=== PATIENT | female | born 1970 | race Caucasian/White ===

== ENCOUNTER 2023-10-06 15:16 | Emergency (ER) | payer OTHER, SELFPAY ==
[2023-10-06] VITALS (12 sets, daily range): BP systolic 177–229; BP diastolic 77–102; PULSE 71–88; RESP 18–23; TEMP 36.3; O2SAT 92–96; BMI 40.3
--- NOTE | 2023-10-06 15:46 | DI.RAD.S_ITS ---
PROCEDURE: XR CHEST 1V INDICATIONS: Shortness of breath TECHNIQUE: One view of the chest was acquired. COMPARISON: None. FINDINGS: Surgical changes and devices: None. Lungs and pleura: Lungs are clear. No pleural effusions or pneumothorax. Mediastinum: Mediastinal contours appear normal. Heart size is normal. Bones and chest wall: No suspicious bony lesions. Overlying soft tissues appear unremarkable. IMPRESSION: No acute cardiopulmonary abnormality is seen. Dictated by: Bernnan Douglas M.D. on 10/06/2023 at 16:54 Approved by: Brennan Douglas M.D. on 10/06/2023 at 16:58
[2023-10-06] MEDS: ALBUTEROL/IPRATROPIUM 3 ML AMPUL INH (16:10)
--- NOTE | 2023-10-06 16:40 | PC.NURSE ---
Pt denies chest pain or any new pain. Reports increased WOB with SOB from exertion, even walking causes increased SOB. Pt was sick last week and since has run out of her albuterol nebulizers. She has not gone back to her PCP to have them filled.
[2023-10-06 16:43] LABS: Add Manual Diff / Slide Review NO; Basophils Absolute Auto 0 /uL (0-100); Basophils Percent Auto 0.9 % (0-2); Eosinophils Absolute Auto 100 /uL (0-450); Eosinophils Percent Auto 1.6 % (2-4); Hematocrit 41.6 % (36-46); Hemoglobin 13.9 g/dL (12.0-16.0); Lymphocytes Absolute Auto 1500 /uL (1100-4500); Lymphocytes Percent Auto 29.3 % (25-40); Mean Corpuscular HGB Conc 33.5 % (30-36); Mean Corpuscular Hemoglobin 27.4 PG (26-34); Mean Corpuscular Volume 81.9 fL (80-100); Monocytes Absolute Auto 600 /uL (0-900); Monocytes Percent Auto 11.3 % (3-14); Neutrophils Absolute Auto 3000 /uL (1500-7000); Neutrophils Percent Auto 56.9 % (50-75); Platelet Count 269 X10^3/uL (150-400); Red Blood Cell Count 5.08 X10^6/uL (4.0-5.2); Red Cell Distribution Width 14.2 % (11.6-14.8); White Blood Cell Count 5.2 X10^3/uL (4.5-11.0)
[2023-10-06 16:52] LABS: INR 1.1 (0.9-1.3); Prothrombin Time 12.2 SECONDS (9.4-12.5)
[2023-10-06 16:54] LABS: Lactate (Lactic Acid) 1.2 mmol/L (0.7-2.1)
[2023-10-06 16:55] LABS: Alanine Aminotransferase 24 IU/L (<35); Albumin 4.8 g/dL (3.5-5.0); Albumin Globulin Ratio 1.2 (1.0-2.8); Alkaline Phosphatase 136 U/L (38-126); Aspartate Aminotransferase 40 IU/L (14-36); BUN Creatinine Ratio 20.6 (6-22); Bilirubin Total 0.8 mg/dL (0.2-1.3); Blood Urea Nitrogen 13 mg/dL (7-17); Calcium 9.1 mg/dL (8.4-10.2); Carbon Dioxide 29 mmol/L (22-32); Chloride 101 mmol/L (98-107); Estimated Glomerular Filt Rate > 60 mL/min (>60); Globulin 4.1 g/dL (1.7-4.1); Glucose 98 mg/dL (70-100); HEMOLYSIS < 15 (0-50); Potassium 3.9 mmol/L (3.4-5.1); Sodium 137 mmol/L (137-145); Total Protein 8.9 g/dL (6.3-8.2)
[2023-10-06 17:07] LABS: NT-proBNP (BNP-Adult 18+) 105 pg/mL (<125); Troponin I < 0.012 ng/mL (0.01-0.034)
[2023-10-06] MEDS: methylPREDNISolone 125 MG/2 ML VIAL IV (17:30)
--- NOTE | 2023-10-06 17:47 | ED_ITS ---
HPI - SOB/Dyspnea General Chief Complaint: Shortness of Breath/Dyspnea Stated Complaint: SoB Time Seen by Provider: 10/06/23 17:15 Source: patient Mode of arrival: Ambulatory Limitations: no limitations History of Present Illness HPI Narrative: This is a 53-year-old female with history of hypertension and asthma who has been out of her medication 4 5 months. Patient states she ran out of her inhalers and would typically use them every so often sometimes 3 times daily but not always. But patient states she recently got an upper respiratory infection with nasal congestion and cough about 5 days ago and has had increasing weakness tightness in her chest. No fevers she has had occasional chills. She denies chest pain or pressure, no syncope. No diaphoresis. Patient states she does feel short of breath feels tight and wheezy in her chest. Patient states no nausea or vomiting, no urinary symptoms. No swelling in extremities. Patient is supposed to be on lisinopril 20 mg daily, she use albuterol PRN. Never had a steroid inhaler in the past but did ask about that. She denies any prior surgeries. States she gets facial swelling with aspirin and has allergy to shellfish. No tobacco, does have alcoholic drink nightly, no recreational drugs. She sees primary care through this [facility] but has been unable to get into see them because she works at the [employer] 6 days a week as part of their mandate and has not been able to get to the office. Related Data Previous Rx's Medication Instructions Recorded albuterol sulfate 2.5 mg/3 mL 2.5 mg (3 mL) inhalation Q4-6H PRN 10/06/23 (0.083 %) solution for nebulization shortness of breath or wheezing #90 mL beclomethasone dipropionate 80 1 inh inhalation BID #10.6 grams 10/06/23 mcg/actuation HFA breath activated aerosol (Qvar RediHaler) lisinopril 20 mg tablet 20 mg PO DAILY #30 tabs 10/06/23 prednisone 10 mg tablets in a dose See Rx Instructions PO .COMPLEX 10/06/23 pack #21 ea Allergies Allergy/AdvReac Type Severity Reaction Status Date / Time aspirin Allergy Verified 10/06/23 15:38 shellfish derived Allergy Verified 10/06/23 15:38 Review of Systems Review of Systems ROS Unobtainable: All systems reviewed & are unremarkable except as noted in HPI and below Patient History Social History Smoking Status: Never smoker Smoking Status: Never smoker alcohol intake frequency: 0-2 drinks per day Substance Use Type: does not use Exam Narrative Exam Narrative: GENERAL: Alert and oriented x three, female in mild distress. HEENT: Head normocephalic, atraumatic, EOMI, pupils reactive, mild nasal congestion, face symmetric, moist mucous membranes NECK: Supple, full range of motion CARDIOVASCULAR: Regular rate and rhythm without murmurs, rubs or gallops. No JVD. No edema bilateral lower extremities. RESPIRATORY: Breath sounds equal bilaterally, bilateral wheezes anterior as well as posterior chest on expiratory, no rhonchi, no rales. No tachypnea or accessory muscle use. ABDOMEN: Soft, nontender. Normoactive bowel sounds all 4 quadrants. No guarding or rebound, rigidity, no mass : No CVA tenderness EXTREMITIES: Normal range of motion, no clubbing or edema. Neurovascularly intact NEUROLOGICAL: Cranial nerves II through XII grossly intact. Moving all extremities SKIN: Warm, dry, no petechiae, no rashes or lesions. Initial Vital Signs Initial Vital Signs: Vital Signs Temperature 97.3 F L 10/06/23 15:38 Pulse Rate 85 10/06/23 15:38 Respiratory Rate 22 10/06/23 15:38 Blood Pressure 229/102 H 10/06/23 15:38 Pulse Oximetry 96 10/06/23 15:38 Oxygen Delivery Method Room Air 10/06/23 15:38 Course Orders Ordered: Discontinued Medications Albuterol (Albuterol 2.5 Mg/3 Ml Neb (Adult)) 10 mg INH NOW ONE Stop: 10/06/23 17:47 Last Admin: 10/06/23 17:58 Dose: 10 mg Documented By: MADHU Albuterol (Albuterol Hfa Prepack) 1 box MISC DIRECTED ONE Stop: 10/06/23 17:47 Last Admin: 10/06/23 18:23 Dose: 1 box Documented By: HILARIA Albuterol/Ipratropium (Albuterol/Ipratropium 3 Ml Ampul) 3 ml INH NOW ONE Stop: 10/06/23 16:09 Last Admin: 10/06/23 16:10 Dose: 3 ml Documented By: JAYASHREE Lisinopril (Lisinopril 20 Mg Tablet) 20 mg PO NOW ONE Stop: 10/06/23 17:47 Last Admin: 10/06/23 18:23 Dose: 20 mg Documented By: HILARIA Methylprednisolone (Methylprednisolone 125 Mg/2 Ml Vial) 125 mg IV NOW ONE Stop: 10/06/23 17:16 Last Admin: 10/06/23 17:30 Dose: 125 mg Documented By: HILARIA Vital Signs Vital signs: Vital Signs - 8 hr 10/06/23 15:38 10/06/23 16:10 10/06/23 16:34 Temperature 97.3 F L Pulse Rate 85 71 80 Respiratory Rate 22 18 Blood Pressure 229/102 H Pulse Oximetry 96 93 92 Oxygen Delivery Method Room Air Room Air Oxygen Flow Rate 0 Fraction of Inspired Oxygen 21 10/06/23 16:35 10/06/23 16:35 10/06/23 17:00 Temperature Pulse Rate 78 Respiratory Rate Blood Pressure 201/100 H 187/92 H Pulse Oximetry 92 Oxygen Delivery Method Room Air Oxygen Flow Rate Fraction of Inspired Oxygen 10/06/23 17:00 10/06/23 17:30 10/06/23 17:30 Temperature Pulse Rate 84 80 Respiratory Rate 22 Blood Pressure 211/95 H Pulse Oximetry 92 93 Oxygen Delivery Method Room Air Oxygen Flow Rate Fraction of Inspired Oxygen 10/06/23 18:00 10/06/23 18:23 10/06/23 18:30 Temperature Pulse Rate 75 86 80 Respiratory Rate 19 21 Blood Pressure 211/95 H Pulse Oximetry 93 96 Oxygen Delivery Method Room Air Room Air Oxygen Flow Rate Fraction of Inspired Oxygen 10/06/23 18:31 10/06/23 18:31 Temperature Pulse Rate 82 Respiratory Rate Blood Pressure 177/77 H Pulse Oximetry 96 Oxygen Delivery Method Room Air Oxygen Flow Rate Fraction of Inspired Oxygen MDM - SOB/Dyspnea Lab Data 10/06/23 16:35 10/06/23 16:35 Labs: Lab Results 10/06/23 Range/Units 16:35 WBC 5.2 (4.5-11.0) X10^3/uL RBC 5.08 (4.0-5.2) X10^6/uL Hgb 13.9 (12.0-16.0) g/dL Hct 41.6 (36-46) % MCV 81.9 (80-100) fL MCH 27.4 (26-34) PG MCHC 33.5 (30-36) % RDW 14.2 (11.6-14.8) % Plt Count 269 (150-400) X10^3/uL Neut % (Auto) 56.9 (50-75) % Lymph % (Auto) 29.3 (25-40) % [place] % (Auto) 11.3 (3-14) % Eos % (Auto) 1.6 L (2-4) % Baso % (Auto) 0.9 (0-2) % Neut # (Auto) 3000 (1990-5101) /uL Lymph # (Auto) 1500 (0455-1109) /uL [place] # (Auto) 600 (0-900) /uL Eos # (Auto) 100 (0-450) /uL Baso # (Auto) 0 (0-100) /uL PT 12.2 (9.4-12.5) SECONDS INR 1.1 (0.9-1.3) Sodium 137 (137-145) mmol/L Potassium 3.9 (3.4-5.1) mmol/L Chloride 101 (98-107) mmol/L Carbon Dioxide 29 (22-32) mmol/L BUN 13 (7-17) mg/dL Creatinine 0.63 (0.52-1.04) mg/dL Estimated GFR > 60 (>60) mL/min BUN/Creatinine Ratio 20.6 (6-22) Glucose 98 (70-100) mg/dL Lactate 1.2 (0.7-2.1) mmol/L Calcium 9.1 (8.4-10.2) mg/dL Total Bilirubin 0.8 (0.2-1.3) mg/dL AST 40 H (14-36) IU/L ALT 24 (<35) IU/L Alkaline Phosphatase 136 H (38-126) U/L Troponin I < 0.012 (0.01-0.034) ng/mL NT-Pro-B Natriuret Pep 105 (<125) pg/mL Total Protein 8.9 H (6.3-8.2) g/dL Albumin 4.8 (3.5-5.0) g/dL Globulin 4.1 (1.7-4.1) g/dL Albumin/Globulin Ratio 1.2 (1.0-2.8) Imaging Data Chest x-ray: Radiologist's Impression: Close Chest X-Ray (Signed) Brennan Douglas - 10/06/23 Launch?[address] [address] XRay Report Signed Patient: Savanna Ta MR#: [id number] : 1970 Acct:[id number] Age/Sex: 53 / F Date of Service: 10/06/23 Loc: ED Accession Number: [id number] Procedure: XR chest 1V Ordering Provider: Jennifer Arciniega D.O. PROCEDURE: XR CHEST 1V INDICATIONS: Shortness of breath TECHNIQUE: One view of the chest was acquired. COMPARISON: None. FINDINGS: Surgical changes and devices: None. Lungs and pleura: Lungs are clear. No pleural effusions or pneumothorax. Mediastinum: Mediastinal contours appear normal. Heart size is normal. Bones and chest wall: No suspicious bony lesions. Overlying soft tissues appear unremarkable. IMPRESSION: No acute cardiopulmonary abnormality is seen. Dictated by: Brennan Douglas M.D. on 10/06/2023 at 16:54 Approved by: Brennan Douglas M.D. on 10/06/2023 at 16:58 ECG Data Attestation: I personally reviewed and interpreted this ECG as follows: Interpretation: Rate 80 WV 158 QRS is [address]TC [address] No acute [address] elevation depression. No priors for comparison. MDM Narrative Medical decision making narrative: This is a 53-year-old female with history of hypertension and asthma who has been out of her medications for several months recent URI and increasing wheezing and tightness and a albuterol. Patient on examination does have wheeze had 1 neb with minimal improvement. Patient's workup includes CBC shows a white count of 5.2 hemoglobin of 13 platelets of 269, INR 1.1, normal renal function with a creatinine of 0.63 BUN of 13 glucose of 98, sodium 137 potassium 3 9, chloride 101 and a CO2 of 29, lactate 1.2 AST is 40 alk-phos 136, otherwise negative LFTs. Troponins negative at less than 0.12, BNP is 205. Chest x-ray shows no acute change. EKG shows sinus rhythm without any acute changes, no priors for comparison. Patient had continued wheeze but no tachypnea or significant accessory muscle use. Was given 10 mg albuterol re-evaluated. Also received Solu-Medrol 125 mg IV. Patient is also quite hypertensive, has been out of her medications for several months was restarted on oral lisinopril and we will refill this. Patient does feel somewhat improved, plan for discharge with albuterol with a spacer, refill for her lisinopril, oral prednisone and we will give a script for steroid inhaler. Patient does have a primary care but has not been following up because it interferes with work. Discussed need for follow-up and group home going to outcomes with persistent hypertension. Patient feels improved after 10 mg. Wheeze has significantly improved as well. Reviewed need for follow-up. Discussed return precautions all questions answered. Patient feels comfortable returning home. Discharge Plan Departure Patient Disposition: Home Clinical Impression: Asthma with exacerbation, URI (upper respiratory infection), Hypertension Instructions: Asthma -- Adult Activity Restrictions/Additional Instructions: It is important that you follow up either with primary care to have your medications refilled regularly. Please restart your lisinopril. Continue with oral steroids until completed. Use albuterol 2-4 puffs with spacer every 4 hours as needed for wheezing or shortness of breath. There has also a prescription for steroid inhaler to use whether you are having symptoms or asymptomatic, use this twice daily regardless of symptoms. Prescription sent to [facility] in [place] Please return for fevers increasing shortness of breath, lightheadedness or passing out, new chest pain or tightness, severe headaches, passing out or other new or concerning changes. Prescriptions: New lisinopril 20 mg tablet 20 mg PO DAILY Qty: 30 0RF albuterol sulfate 2.5 mg /3 mL (0.083 %) solution for nebulization 2.5 mg inhalation Q4-6H PRN (Reason: shortness of breath or wheezing) Qty: 90 0RF Qvar RediHaler 80 mcg/actuation HFA aerosol breath activated 1 inh inhalation BID Qty: 10.6 0RF prednisone 10 mg tablets,dose pack See Rx Instructions .ROUTE .COMPLEX Qty: 21 0RF Rx Instructions: Take 6 tablets p.o. x1 day, then 5 tablets p.o. x1 day, then 4 tablets p.o. x1 day, then 3 tablets p.o. x1 day, then 2 tablets p.o. x1 day, then 1 tablet p.o. x1 day Stand Alone Forms: Patient Portal/API
[2023-10-06] MEDS: ALBUTEROL 2.5 MG/3 ML NEB (ADULT) 10 MG INH (17:58)
[2023-10-06] MEDS: ALBUTEROL HFA PREPACK 1 BOX MISC (18:23)
[2023-10-06] MEDS: lisinopriL 20 MG TABLET PO (18:23)
== END 2023-10-06 19:12 | disposition home or self-care (01) ==
PROVIDERS: Emergency Provider Emergency Medicine
DX: I10 Essential (primary) hypertension (principal); J45.901 Unspecified asthma with (acute) exacerbation; J06.9 Acute upper respiratory infection, unspecified
CPT/HCPCS: 36415; 71045; 80053; 83605; 83880; 84484; 85025; 85610; 93005; 94640; 96374; 99284; J2919; J7613

== ENCOUNTER → 2023-10-29 13:19 | Outpatient (CLI) | payer OTHER, SELFPAY | LOC: RESP 13:20 | PROVIDERS: PCP Family Medicine; Referring Provider Family Medicine; Visit Provider Family Medicine | DX: J45.20 Mild intermittent asthma, uncomplicated (principal) | CPT/HCPCS: 94060; 94726; 94729 ==

== ENCOUNTER → 2023-12-03 06:50 | Outpatient (CLI) | payer OTHER, SELFPAY ==
--- NOTE | 2023-12-03 06:51 | DI.ECHO.S_ITS ---
[facility] : : [address] : : [place] : : [id number] : : Phone: [phone] Echocardiogram Report + + :Name: LUCIA MATOS Study Date: 12/03/2023 Height: 66 in : :[facility] ReadingLocation: Weight: 253 lb : : Gender: Female BSA: 2.2 m2 : :: 1970 Age: 53 yrs BP: 137/93 mmHg: :Reason For Study: DYSPNEA ON EXERTION : :Ordering Physician: OMAR : :WILFRIDO Performed By: Jaclyn Cortez : :Referring: WILFRIDO NELSON : + + Interpretation Summary Left ventricular wall thickness is mildly increased. The ejection fraction is estimated to be 60-65%. Diastolic parameters suggest probable normal left ventricular diastolic function and normal filling pressures. The right ventricle is normal in size and function. No significant valvular abnormalities. Pulmonary artery pressures cannot be estimated because of the lack of a measurable TR jet velocity but the IVC suggests a CVP of around 3 mmHg. Procedure: A two-dimensional transthoracic echocardiogram with color flow and Doppler was performed. The study quality was technically adequate. There is no prior echocardiogram noted for this patient. The patient was in sinus bradycardia with heart rates between 58-65 bpm during the exam. Left Ventricle: The left ventricle is normal in size. Left ventricular wall thickness is mildly increased. The ejection fraction is estimated to be 60- 65%. Diastolic parameters suggest probable normal left ventricular diastolic function and normal filling pressures. Right Ventricle: The right ventricle is normal in size and function. Atria: The left atrial size is normal. Right atrial size is normal. There is no Doppler evidence for an interatrial shunt. Mitral Valve: The mitral valve is normal in structure and function. There is no mitral regurgitation noted. Aortic Valve: The aortic valve is trileaflet. The aortic valve opens well. There is no aortic valve stenosis. No aortic regurgitation is present. Tricuspid Valve: The tricuspid valve is normal in structure and function. There is trace tricuspid regurgitation. Pulmonary artery pressures cannot be estimated because of the lack of a measurable TR jet velocity but the IVC suggests a CVP of around 3 mmHg. Pulmonic Valve: The pulmonic valve is not well seen, but is grossly normal. There is no pulmonic valvular regurgitation. Great Vessels: The aortic root is normal size. The dimensions of the ascending aorta are normal. The IVC is of normal diameter and collapses greater than 50% with a sniff. This suggests a low right atrial pressure of 3 mm Hg. Pericardium/ Pleura There is no pericardial effusion. There is no pleural effusion. MMode/2D Measurements & Calculations LVIDd: 5.3 cm LVOT diam: 2.0 cm LVIDs: 3.2 cm Ao root diam: 3.0 cm FS: 39.9 % asc Aorta Diam: 3.3 cm IVSd: 1.1 cm Ao Arch Diam (Prox Trans): 2.9 cm LVPWd: 1.1 cm LV diggs. diameter/BSA (cm/m^2): 2.4 LV sys. diameter/BSA (cm/m^2): 1.4 LA A2 area: 19.4 cm2 RA long axis: 5.2 cm LA A4 area: 17.3 cm2 RA area: 13.9 cm2 LA length (vol): 5.0 cm RA vol: 31.8 ml LA vol: 56.8 ml RA : 14.4 ml/m2 LA vol index: 25.7 ml/m2 IVC diam: 1.3 cm RVD1 (basal): 3.8 cm RVD2 (mid): 2.6 cm TAPSE: 2.3 cm Doppler Measurements & Calculations Ao V2 max: 178.5 cm/sec LVOT Max Parker: 114.8 cm/sec Ao V2 mean: 110.1 cm/sec LV V1 max P.3 mmHg Ao max P.7 mmHg LV V1 VTI: 23.4 cm Ao mean P.8 mmHg NEHEMIAS(I,D): 1.9 cm2 Ao V2 VTI: 37.3 cm NEHEMIAS(V,D): 1.9 cm2 sev ratio: 0.63 NEHEMIAS indexed to BSA (cm^2/m^2): 0.85 MV E max parker: 113.9 cm/sec TR max parker: 253.4 cm/sec MV A max parker: 104.4 cm/sec TR max P.7 mmHg MV E/A: 1.1 PA V2 max: 111.8 cm/sec Med Peak E' Parker: 8.0 cm/sec PA V2 mean: 87.2 cm/sec E/E' med: 14.2 PA mean P.2 mmHg Lat Peak E' Parker: 11.6 cm/sec PA pr(Accel): 31.0 mmHg E/E' lat: 9.8 E/e' average: 12.0 MV dec time: 0.26 sec [facility] 70.0 ml Reading Physician:01:41 PM
== END ==
LOC: ECHO 06:51
PROVIDERS: PCP Family Medicine; Referring Provider Family Medicine; Visit Provider Family Medicine
DX: R06.09 Other forms of dyspnea (principal)
CPT/HCPCS: 93306

== ENCOUNTER 2024-08-16 11:31 | Emergency (ER) | payer OTHER, SELFPAY ==
[2024-08-16] VITALS (18 sets, daily range): BP systolic 155–196; BP diastolic 67–98; PULSE 82–104; RESP 19–32; TEMP 37.4; O2SAT 93–99; BMI 43.5
--- NOTE | 2024-08-16 11:46 | DI.RAD.S_ITS ---
PROCEDURE: XR CHEST 1V INDICATIONS: Shortness of breath TECHNIQUE: One view of the chest was acquired. COMPARISON: [facility], CR, XR CHEST 1V, 10/06/2023, 16:18. FINDINGS: Surgical changes and devices: None. Lungs and pleura: Lungs are clear. No pleural effusions or pneumothorax. Mediastinum: Mediastinal contours appear normal. Heart size is normal. Bones and chest wall: No suspicious bony lesions. Overlying soft tissues appear unremarkable. IMPRESSION: No acute cardiopulmonary abnormality is seen. Dictated by: Brennan Douglas M.D. on 08/16/2024 at 13:22 Approved by: Brennan Douglas M.D. on 08/16/2024 at 13:22
--- NOTE | 2024-08-16 11:53 | EKG_ITS ---
[address] [address] Test Date: 2024-08-16 Pat Name: Savanna Ta Department: [facility] Room: Gender: Female Receiving Clerk: GLORIA : 1970 Requested By: Order Number: [id number] Reading MD: Mendel Alegre Measurements Intervals [place] Rate: 92 P: 60 MT: 150 QRS: 42 QRSD: 78 T: 59 QT: 356 QTc: 440 Interpretive Statements Normal sinus rhythm Low voltage QRS Electronically Signed On 08-16-2024 18:21:19 PST by Mendel Alegre
[2024-08-16] MEDS: ALBUTEROL 2.5 MG/3 ML NEB (ADULT) INH ×2 (12:08→14:58)
[2024-08-16 12:09] LABS: Add Manual Diff / Slide Review NO; Basophils Absolute Auto 100 /uL (0-100); Basophils Percent Auto 0.7 % (0-2); Eosinophils Absolute Auto 200 /uL (0-450); Eosinophils Percent Auto 2.1 % (2-4); Hematocrit 38.4 % (36-46); Hemoglobin 12.9 g/dL (12.0-16.0); Lymphocytes Absolute Auto 700 /uL (1100-4500); Lymphocytes Percent Auto 9.7 % (25-40); Mean Corpuscular HGB Conc 33.5 % (30-36); Mean Corpuscular Hemoglobin 28.4 PG (26-34); Mean Corpuscular Volume 84.7 fL (80-100); Monocytes Absolute Auto 500 /uL (0-900); Monocytes Percent Auto 5.9 % (3-14); Neutrophils Absolute Auto 6200 /uL (1500-7000); Neutrophils Percent Auto 81.6 % (50-75); Platelet Count 294 X10^3/uL (150-400); Red Blood Cell Count 4.54 X10^6/uL (4.0-5.2); Red Cell Distribution Width 13.7 % (11.6-14.8); White Blood Cell Count 7.6 X10^3/uL (4.5-11.0)
[2024-08-16 12:18] LABS: Prothrombin Time 11.4 SECONDS (9.4-12.5)
[2024-08-16 12:22] LABS: Alanine Aminotransferase 31 IU/L (<35); Albumin 4.6 g/dL (3.5-5.0); Albumin Globulin Ratio 1.4 (1.0-2.8); Alkaline Phosphatase 117 U/L (38-126); Aspartate Aminotransferase 43 IU/L (14-36); BUN Creatinine Ratio 16.9 (6-22); Bilirubin Total 0.4 mg/dL (0.2-1.3); Blood Urea Nitrogen 14 mg/dL (7-17); Calcium 8.8 mg/dL (8.4-10.2); Carbon Dioxide 25 mmol/L (22-32); Chloride 101 mmol/L (98-107); Estimated Glomerular Filt Rate > 60 mL/min (>60); Globulin 3.4 g/dL (1.7-4.1); Glucose 111 mg/dL (70-100); HEMOLYSIS < 15 (0-50); Lactate (Lactic Acid) 1.6 mmol/L (0.7-2.1); Potassium 4.9 mmol/L (3.4-5.1); Sodium 135 mmol/L (137-145)
[2024-08-16 12:34] LABS: NT-proBNP (BNP-Adult 18+) < 20 pg/mL (<125); Troponin I < 0.012 ng/mL (0.01-0.034)
--- NOTE | 2024-08-16 14:42 | ED_ITS ---
HPI - SOB/Dyspnea General Chief Complaint: Shortness of Breath/Dyspnea Stated Complaint: Short of breath, chest is twinging Time Seen by Provider: 08/16/24 14:41 Source: patient Mode of arrival: Ambulatory Limitations: no limitations History of Present Illness HPI Narrative: Patient is a 54-year-old female history history of obstructive sleep apnea no formal diagnosis of asthma she does have no significant improvement after bronchodilators but does have albuterol inhalers at home presents today with increasing shortness of breath. She says that she has significant shortness of breath with exertion no significant chest pain or lower extremity edema. She had an echo done last year which did not show any evidence of pulmonary hypertension and normal atria. She says at 1 point she was placed on oral steroids which does seem to help she is currently taking Alvesco which also seems to help. She denies any sort of orthopnea. She was some obvious conversational dyspnea Related Data Home Medications Medication Instructions Recorded Confirmed ciclesonide 80 mcg/actuation 2 puff inhalation DAILY 01/07/24 01/07/24 aerosol inhaler (Alvesco) Previous Rx's Medication Instructions Recorded albuterol sulfate 2.5 mg/3 mL 2.5 mg (3 mL) inhalation Q4-6H PRN 10/06/23 (0.083 %) solution for nebulization shortness of breath or wheezing #90 mL lisinopril 20 mg tablet 20 mg PO DAILY #30 tabs 10/06/23 albuterol sulfate 2.5 mg/0.5 mL 5 mg inhalation QID PRN shortness 08/16/24 solution for nebulization of breath or wheezing #30 ea prednisone 10 mg tablet 10 mg PO DAILY #30 tabs 08/16/24 Allergies Allergy/AdvReac Type Severity Reaction Status Date / Time aspirin Allergy Verified 01/07/24 10:43 shellfish derived Allergy Verified 01/07/24 10:43 Patient History Social History Smoking Status: Never smoker Smoking Status: Never smoker alcohol intake frequency: 0-2 drinks per day Exam Initial Vital Signs Initial Vital Signs: Vital Signs Temperature 99.4 F 08/16/24 11:40 Pulse Rate 93 H 08/16/24 11:40 Respiratory Rate 22 08/16/24 11:40 Blood Pressure 196/97 H 08/16/24 11:40 Pulse Oximetry 97 08/16/24 11:40 Oxygen Delivery Method Room Air 08/16/24 11:40 GENERAL: Alert pleasant 54-year-old female seems in no respiratory distress and in no acute distress. HEENT: Head atraumatic,EOMI, pupils reactive, face symmetric, moist mucous membranes CARDIOVASCULAR: Regular rate and rhythm without murmurs, rubs or gallops. RESPIRATORY: Decreased breath sounds bilaterally slight wheezing ABDOMEN: Soft, nontender. Normoactive bowel sounds all 4 quadrants. No guarding or rebound. EXTREMITIES: Normal range of motion, no clubbing or edema. Neurovascularly intact NEUROLOGICAL: Alert and oriented x4.Normal gait and speech. SKIN: Warm, dry, no laceration, no petechiae, no rashes or lesions. Scores HEART Score Heart Score history: Slightly Suspicious Heart Score EKG: Normal Heart Score Age: 45-64 years old Heart Score risk factors: No known risk factors Heart Score troponin: < or = to normal limit Heart Score Total: 1 Course Orders Ordered: ED Orders 08/16/24 11:46 XR chest 1V Stat EKG-12 Lead Stat Measure peak expiratory flow ONCE RT Consult Eval and Treat NOW 08/16/24 11:58 Complete Blood Count AUTO DIFF Stat Comprehensive Metabolic Panel Stat Lactate (Lactic Acid) Stat NT-proBNP (BNP-Adult 18+) Stat Prothrombin Time INR Stat Troponin I Stat 08/16/24 15:12 D Dimer Stat Trop I [Troponin I] Stat 08/16/24 16:04 CT angio chest PE protocol Stat Discontinued Medications Albuterol (Albuterol 2.5 Mg/3 Ml Neb (Adult)) 2.5 mg INH NOW ONE Stop: 08/16/24 12:07 Last Admin: 08/16/24 12:08 Dose: 2.5 mg Documented By: JAYASHREE Albuterol (Albuterol 2.5 Mg/3 Ml Neb (Adult)) 2.5 mg INH NOW ONE Stop: 08/16/24 14:53 Last Admin: 08/16/24 14:58 Dose: 2.5 mg Documented By: GERALDINE Albuterol/Ipratropium (Albuterol/Ipratropium 3 Ml Ampul) 3 ml INH NOW ONE Stop: 08/16/24 14:50 Last Admin: 08/16/24 14:58 Dose: 3 ml Documented By: GERALDINE Methylprednisolone (Methylprednisolone 125 Mg/2 Ml Vial) 125 mg IV NOW ONE Stop: 08/16/24 14:50 Last Admin: 08/16/24 15:35 Dose: 125 mg Documented By: JAJA Vital Signs Vital signs: Vital Signs - 8 hr 08/16/24 11:40 08/16/24 11:55 08/16/24 11:56 Temperature 99.4 F Pulse Rate 93 H 88 Respiratory Rate 22 Blood Pressure 196/97 H 180/89 H Pulse Oximetry 97 Oxygen Delivery Method Room Air 08/16/24 11:56 08/16/24 12:00 08/16/24 12:01 Temperature Pulse Rate 86 89 90 Respiratory Rate Blood Pressure Pulse Oximetry 98 98 98 Oxygen Delivery Method 08/16/24 12:01 08/16/24 12:30 08/16/24 12:30 Temperature Pulse Rate 90 Respiratory Rate 19 Blood Pressure 170/98 H 180/82 H Pulse Oximetry 98 Oxygen Delivery Method 08/16/24 13:00 08/16/24 13:00 08/16/24 13:30 Temperature Pulse Rate 84 87 Respiratory Rate 20 25 H Blood Pressure 176/77 H Pulse Oximetry 97 96 Oxygen Delivery Method 08/16/24 13:31 08/16/24 13:31 08/16/24 14:00 Temperature Pulse Rate 88 Respiratory Rate 32 H Blood Pressure 157/67 H 169/71 H Pulse Oximetry 96 Oxygen Delivery Method 08/16/24 14:00 08/16/24 14:30 08/16/24 14:30 Temperature Pulse Rate 82 86 Respiratory Rate 19 20 Blood Pressure 163/71 H Pulse Oximetry 95 94 Oxygen Delivery Method 08/16/24 14:58 08/16/24 15:00 08/16/24 15:00 Temperature Pulse Rate 98 H 93 H Respiratory Rate 20 23 Blood Pressure 165/77 H Pulse Oximetry 93 93 Oxygen Delivery Method Room Air 08/16/24 15:30 08/16/24 15:30 08/16/24 16:05 Temperature Pulse Rate 96 H 98 H Respiratory Rate 21 Blood Pressure 155/70 H Pulse Oximetry 95 99 Oxygen Delivery Method 08/16/24 16:35 08/16/24 17:00 08/16/24 17:30 Temperature Pulse Rate 104 H 96 H 96 H Respiratory Rate 26 H 19 Blood Pressure Pulse Oximetry 95 94 93 Oxygen Delivery Method MDM - SOB/Dyspnea Lab Data 08/16/24 11:58 08/16/24 11:58 Labs: Lab Results 08/16/24 08/16/24 Range/Units 11:58 15:12 WBC 7.6 (4.5-11.0) X10^3/uL RBC 4.54 (4.0-5.2) X10^6/uL Hgb 12.9 (12.0-16.0) g/dL Hct 38.4 (36-46) % MCV 84.7 (80-100) fL MCH 28.4 (26-34) PG MCHC 33.5 (30-36) % RDW 13.7 (11.6-14.8) % Plt Count 294 (150-400) X10^3/uL Neut % (Auto) 81.6 H (50-75) % Lymph % (Auto) 9.7 L (25-40) % Sumner % (Auto) 5.9 (3-14) % Eos % (Auto) 2.1 (2-4) % Baso % (Auto) 0.7 (0-2) % Neut # (Auto) 6200 (6269-1829) /uL Lymph # (Auto) 700 L (5894-7986) /uL Sumner # (Auto) 500 (0-900) /uL Eos # (Auto) 200 (0-450) /uL Baso # (Auto) 100 (0-100) /uL PT 11.4 (9.4-12.5) SECONDS INR 1.0 (0.9-1.3) D-Dimer 862 H (<500) ng/ml Sodium 135 L (137-145) mmol/L Potassium 4.9 (3.4-5.1) mmol/L Chloride 101 (98-107) mmol/L Carbon Dioxide 25 (22-32) mmol/L BUN 14 (7-17) mg/dL Creatinine 0.83 (0.52-1.04) mg/dL Estimated GFR > 60 (>60) mL/min BUN/Creatinine Ratio 16.9 (6-22) Glucose 111 H (70-100) mg/dL Lactate 1.6 (0.7-2.1) mmol/L Calcium 8.8 (8.4-10.2) mg/dL Total Bilirubin 0.4 (0.2-1.3) mg/dL AST 43 H (14-36) IU/L ALT 31 (<35) IU/L Alkaline Phosphatase 117 (38-126) U/L Troponin I < 0.012 < 0.012 (0.01-0.034) ng/mL NT-Pro-B Natriuret Pep < 20 (<125) pg/mL Total Protein 8.0 (6.3-8.2) g/dL Albumin 4.6 (3.5-5.0) g/dL Globulin 3.4 (1.7-4.1) g/dL Albumin/Globulin Ratio 1.4 (1.0-2.8) Imaging Data Chest x-ray: Radiologist's Impression: PROCEDURE: XR CHEST 1V INDICATIONS: Shortness of breath TECHNIQUE: One view of the chest was acquired. COMPARISON: [facility], , XR CHEST 1V, 10/06/2023, 16:18. FINDINGS: Surgical changes and devices: None. Lungs and pleura: Lungs are clear. No pleural effusions or pneumothorax. Mediastinum: Mediastinal contours appear normal. Heart size is normal. Bones and chest wall: No suspicious bony lesions. Overlying soft tissues appear unremarkable. IMPRESSION: No acute cardiopulmonary abnormality is seen. Dictated by: Brennan Douglas M.D. on 08/16/2024 at 13:22 Approved by: Brennan Douglas M.D. on 08/16/2024 at 13:22 CT scan - chest: Radiologist's Impression: PROCEDURE: CT ANGIO CHEST PE PROTOCOL INDICATIONS: sob elevated dimer TECHNIQUE: After the administration of intravenous contrast, 2 mm thick sections acquired from the pulmonary apices to the posterior costophrenic angles. 3-dimensional maximum intensity projection (MIP) coronal and sagittal reformats were then acquired through the thorax. For radiation dose reduction, the following was used: automated exposure control, adjustment of mA and/or kV according to patient size. COMPARISON: None. FINDINGS: Image quality: Diagnostic for large in moderate PE. Pulmonary arteries: Pulmonary arteries are normal in size, and demonstrate no intraluminal filling defects to suggest central pulmonary embolism. Small distal pulmonary emboli would be difficult to identify secondary to technique. Lower Neck: No enlarged lymph nodes. Thyroid: No thyroid nodules which require sonographic follow up, per consensus guidelines. Axillae: No enlarged lymph nodes. Chest Wall: Unremarkable. Bones: Unremarkable. Lungs and Pleura: No pneumothorax or pleural effusions. Vague subtle ground- glass opacities are likely secondary to submaximal pulmonary expansion. Heart: Heart size is normal. No pericardial effusion. Thoracic Vessels: No aortic aneurysm. 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 Mediastinum and Joanne: No enlarged lymph nodes. Esophagus: No wall thickening. No hiatal hernia. Upper Abdomen: Visualized upper abdomen solid organs and bowel loops appear normal. IMPRESSION: 1. No pulmonary emboli identified. 2. No acute pulmonary process identified. 3. Normal variant arch anatomy, with aberrant right subclavian. Dictated by: Brennan Douglas M.D. on 08/16/2024 at 17:17 Approved by: Brennan Douglas M.D. on 08/16/2024 at 17:20 ECG Data Attestation: I personally reviewed and interpreted this ECG as follows: Prior ECG tracings: available for review Interpretation: Normal sinus rhythm rate 92 ND interval 150 QRS 78 QTC 440 no ischemic changes similar to prior MDM Narrative Medical decision making narrative: MDM CC: Shortness of breath Complicating co-morbidities: Hypertension,. Respiratory disease on Alvesco Medical records reviewed: Pulmonology visit reviewed from 01/07/2024 Differential considered: Asthma exacerbation reactive airway, congestive heart failure, pulmonary embolism, acute coronary syndrome Exam documented above, pertinent findings include: 54-year-old female who has some [id number] respiratory distress has a obvious conversational dyspnea no significant lower extremity edema Lab Test results independently reviewed as above. Pertinent findings: CBC no leukocytosis no anemia CMP no electrolyte abnormality no ARJUN Troponin negative BNP undetectable Independently reviewed EKG as above sinus rhythm no ischemia Imaging studies independently reviewed: Chest x-ray no acute cardiopulmonary process CT chest no PE no pneumonia Treatments: Albuterol, Solu-Medrol Re-evaluations: Patient is breathing better after a couple breathing treatments Discussion: Patient 54-year-old female with some pulmonary disease not specified as asthma however today she did not improve with albuterol treatments. Blood work today is overall reassuring. She did have a mildly elevated D-dimer 800 with shortness of breath and no real asthma diagnosis or other cause you think reasonable to get a CT which fortunately does not show any evidence of pulmonary embolism. We will treat her as a reactive airway disease with steroid taper Discharge Plan Departure Patient Disposition: Home Clinical Impression: Asthma with exacerbation Instructions: DI for Asthma -- Adult Activity Restrictions/Additional Instructions: *You have been diagnosed with reactive airway disease *What to do: At this time please follow-up with primary and pulmonology Lung scan today is overall reassuring *Continue to take medications as directed Prednisone 40 mg once a day for 3 days, 30 mg once a day for 3 days, 20 mg once a day for 3 days 10 mg once a day for 3 days Albuterol nebulizers every 4 hours if needed *Follow up with your primary care provider in 2-3 days or call [phone] *Return to ER if you should have increasing shortness of breath chest pain or any new, worsening or concerning symptoms Prescriptions: New prednisone 10 mg tablet 10 mg PO DAILY Qty: 30 0RF Rx Instructions: day 1-3: 40 mg once a day day 4-6: 30 mg once a day day 7-9: 20 mg once a day day 10-12: 10 mg once a day albuterol sulfate 2.5 mg/0.5 mL solution for nebulization 5 mg inhalation QID PRN (Reason: shortness of breath or wheezing) Qty: 30 0RF No Action lisinopril 20 mg tablet 20 mg PO DAILY Qty: 30 0RF albuterol sulfate 2.5 mg /3 mL (0.083 %) solution for nebulization 2.5 mg inhalation Q4-6H PRN (Reason: shortness of breath or wheezing) Qty: 90 0RF Alvesco 80 mcg/actuation HFA aerosol inhaler 2 puff inhalation DAILY Referrals: Velasquez Portillo MD [Primary Care Provider] - Stand Alone Forms: Patient Portal/API/Survey, Work Release Note
[2024-08-16] MEDS: ALBUTEROL/IPRATROPIUM 3 ML AMPUL INH (14:58)
[2024-08-16 15:30] LABS: D Dimer 862 ng/ml (<500)
[2024-08-16] MEDS: methylPREDNISolone 125 MG/2 ML VIAL IV (15:35)
[2024-08-16 15:43] LABS: Troponin I < 0.012 ng/mL (0.01-0.034)
--- NOTE | 2024-08-16 16:04 | DI.CT.S_ITS ---
PROCEDURE: CT ANGIO CHEST PE PROTOCOL INDICATIONS: sob elevated dimer TECHNIQUE: After the administration of intravenous contrast, 2 mm thick sections acquired from the pulmonary apices to the posterior costophrenic angles. 3-dimensional maximum intensity projection (MIP) coronal and sagittal reformats were then acquired through the thorax. For radiation dose reduction, the following was used: automated exposure control, adjustment of mA and/or kV according to patient size. COMPARISON: None. FINDINGS: Image quality: Diagnostic for large in moderate PE. Pulmonary arteries: Pulmonary arteries are normal in size, and demonstrate no intraluminal filling defects to suggest central pulmonary embolism. Small distal pulmonary emboli would be difficult to identify secondary to technique. Lower Neck: No enlarged lymph nodes. Thyroid: No thyroid nodules which require sonographic follow up, per consensus guidelines. Axillae: No enlarged lymph nodes. Chest Wall: Unremarkable. Bones: Unremarkable. Lungs and Pleura: No pneumothorax or pleural effusions. Vague subtle ground-glass opacities are likely secondary to submaximal pulmonary expansion. Heart: Heart size is normal. No pericardial effusion. Thoracic Vessels: No aortic aneurysm. 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 Mediastinum and Joanne: No enlarged lymph nodes. Esophagus: No wall thickening. No hiatal hernia. Upper Abdomen: Visualized upper abdomen solid organs and bowel loops appear normal. IMPRESSION: 1. No pulmonary emboli identified. 2. No acute pulmonary process identified. 3. Normal variant arch anatomy, with aberrant right subclavian. Dictated by: Brennan Douglas M.D. on 08/16/2024 at 17:17 Approved by: Brennan Douglas M.D. on 08/16/2024 at 17:20
== END 2024-08-16 17:54 | disposition home or self-care (01) ==
PROVIDERS: Emergency Provider Emergency Medicine; PCP Family Medicine
DX: J45.901 Unspecified asthma with (acute) exacerbation (principal); R07.9 Chest pain, unspecified; I10 Essential (primary) hypertension; E66.9 Obesity, unspecified; Z68.41 Body mass index [BMI] 40.0-44.9, adult
CPT/HCPCS: 36415; 71045; 71275; 80053; 83605; 83880; 84484; 85025; 85379; 85610; 93005; 94640; 96374; 99285; J2919; J7613; Q9967